=== PATIENT | male | born 1980 | race Caucasian/White ===

== ENCOUNTER 2019-02-17 00:09 | Emergency (ER) | payer SELFPAY ==
[~2019-02-17] VITALS: Ht 175 cm; Wt 90.0 kg
[2019-02-17] MEDS ORDERED: FAMOTIDINE 20MG/2ML IV (PEPCID) IVP ONE (00:45)
[2019-02-17] MEDS ORDERED: LORATADINE (CLARITIN) 10 MG TAB PO ONE (00:45)
[2019-02-17] MEDS ORDERED: methylPREDNISolone 125 MG (Solu-MEDROL) VIAL IVP ONE (00:45)
[2019-02-17] MEDS ORDERED: diphenhydrAMINE 50 MG/ML INJ (BENADRYL) IVP ONE (00:45)
--- NOTE | 2019-02-17 00:50 | ED General ---
General Chief Complaint: Allergic Reaction Stated Complaint: RASH ON ABD AND UNDER ARMS, SWOLLEN LIPS Nursing Triage Note: PT STATES HE WAS AT HIS FRIENDS HOUSE EAROUND ONE HOUR [employer] WHEN HE BECAME FLUSH AND BEGAN TO DEVELOPE HIVES AROUND HIS WAISTLINE AND TORSO. PT DENIES KNOWN ALLERGENS OR PREVIOUS EPISODES OF THIS NATURE. Nursing Sepsis Screen: No Definite Risk Source of Information: Patient, Other Exam Limitations: No Limitations History of Present Illness Date Seen by Provider: Feb 17, 2019 Time Seen by Provider: 00:20 Initial Comments Patient presents ER by private conveyance with chief complaint of a itchy rash started on his waistline moving of the trunk and armpits. He feels like his left side of his mouth swollen face is swelling. Anaphylaxis. Is not exposed to. No new soaps or detergents. 2 weeks ago he moved to the [facility] from [place]. No significant medical problems or history. He took 2 tablets of Benadryl 30 minutes prior to arrival. Allergies and Home Medications Allergies Coded Allergies: No Known Drug Allergies (Unverified , 02/17/19) Home Medications Epinephrine 0.3 Mg/0.3 Ml Auto.injct, 0.3 MG IJ Q15M PRN for anaphylaxis Prescribed by: GOPAL GUZMAN on 02/17/1951 Prednisone 20 Mg Tab, 20 MG PO BID Prescribed by: GOPAL GUZMAN on 02/17/1951 Patient Home Medication List Home Medication List Reviewed: Yes Review of Systems Review of Systems Constitutional: No chills, No fever EENTM: No ear discharge, No ear pain Respiratory: No cough, No short of breath, No stridor, No wheezing Cardiovascular: No chest pain, No edema Gastrointestinal: No abdominal pain, No nausea Genitourinary: No dysuria, No frequency Past Fxfypdk-Euqhef-Ryhmvi Hx Patient Social History Alcohol Use: Occasionally Uses Alcohol Beverage of Choice: Beer Recreational Drug Use: Yes Smoking Status: Current Everyday Smoker Type Used: Cigarettes Recent Foreign Travel: No Contact w/Someone Who Travel: No Recent Infectious Disease Expo: No Recent Hopitalizations: No Immunizations Up To Date Tetanus Booster (TDap): Less than 5yrs PED Vaccines UTD: No Seasonal Allergies Seasonal Allergies: No Past Medical History Surgeries: Yes Orthopedic Respiratory: No Cardiac: No Neurological: No Genitourinary: No Gastrointestinal: No Musculoskeletal: No Endocrine: No HEENT: No Cancer: No Psychosocial: No Integumentary: No Blood Disorders: No Adverse Reaction/Blood Tranf: No Physical Exam Vital Signs Vital Signs - First Documented 02/17/19 00:18 Temp 36.4 Pulse 77 Resp 20 B/P (MAP) 117/80 (92) Pulse Ox 96 O2 Delivery Room Air Capillary Refill : Less Than 3 Seconds Height, Weight, BMI Height: '" Weight: lbs. oz. kg; 29.00 BMI Method: General Appearance: No Apparent Distress, WD/WN Eyes: Bilateral Eye Normal Inspection, Bilateral Eye PERRL, Bilateral Eye EOMI HEENT: PERRL/EOMI, Normal ENT Inspection, Pharynx Normal, Moist Mucous Membranes, Other Neck: Full Range of Motion, Normal Inspection Respiratory: Lungs Clear, Normal Breath Sounds, No Accessory Muscle Use, No Respiratory Distress Cardiovascular: Regular Rate, Rhythm, No Edema Neurologic/Psychiatric: Alert, Oriented x3, No Motor/Sensory Deficits (mildly drowsy) Skin: Warm/Dry, Rash (confluence of patches of erythematous, flat, pruritic wheals and hives) Progress/Results/Core Measures Suspected Sepsis Recent Fever Within 48 Hours: No Infection Criteria Present: None New/Unexplained Altered Menta: No Sepsis Screen: No Definite Risk SIRS Temperature: Pulse: 77 Respiratory Rate: 20 Blood Pressure 117 /80 Mean: 92 Results/Orders My Orders Orders - GOPAL GUZMAN Loratadine Tablet (Claritin Tablet) (02/17/19 00:45) Famotidine Injection (Pepcid Injection) (02/17/19 00:45) Diphenhydramine Injection (Benadryl Inje (02/17/19 00:45) Methylprednisolone Sod Succ (Solu-Medrol (02/17/19 00:45) Ed Iv/Invasive Line Start (02/17/19 00:45) Medications Given in ED Current Medications Medications Dose Ordered Sig/Jacqueline Route Start Time Stop Time Status Last Admin Dose Admin Diphenhydramine HCl 25 mg ONCE ONCE IVP 02/17/19 00:45 02/17/19 00:46 DC 02/17/19 00:52 25 MG Famotidine 20 mg ONCE ONCE IVP 02/17/19 00:45 02/17/19 00:46 DC 02/17/19 00:52 20 MG Methylprednisolone Sodium Succinate 125 mg ONCE ONCE IVP 02/17/19 00:45 02/17/19 00:46 DC 02/17/19 00:52 125 MG Vital Signs/I&O 02/17/19 00:18 Temp 36.4 Pulse 77 Resp 20 B/P (MAP) 117/80 (92) Pulse Ox 96 O2 Delivery Room Air Capillary Refill : Less Than 3 Seconds Blood Pressure Mean: 92 Progress Note #1: Time: 00:48 Progress Note Antihistamines and Solu-Medrol. We will monitor him for about an hour. Presently his blood pressure is normal and he is not tachycardic or having anaphylaxis. Progress Note #2: Time: 01:30 Progress Note Patient's rash is gone he has no itching no stridor no difficulty breathing and he is ready to go home. Departure Impression Primary Impression: Urticaria of unknown origin Disposition: HOME, SELF-CARE Condition: Improved Departure-Patient Inst. Decision time for Depature: 01:30 Referrals: NO,LOCAL PHYSICIAN (PCP/Family) Primary Care Physician Patient Instructions: Linh (KRISTA) Add. Discharge Instructions: Until you're itching has gone away start taking the loratadine one tablet daily. Benadryl 1-2 tablets every 6 hours as needed for breakthrough itching. Pepcid one tablet twice a day until the itching is gone. Prednisone one tablet twice a day for the next 5 days. Return to the ER if you begin to experience shortness of breath or other worsening symptoms such as difficulty swallowing your secretions. Use the epinephrine injector if you have difficulty breathing or swallowing secretions once every [address] to the ER. All discharge instructions reviewed with patient and/or family. Voiced understanding. Scripts Epinephrine (Epipen 2-Ra) 0.3 Mg/0.3 Ml Auto.injct 0.3 MG IJ Q15M PRN for anaphylaxis, #1 EA 0 Refills Prov: GOPAL GUZMAN 02/17/19 Prednisone (Prednisone) 20 Mg Tab 20 MG PO BID for 5 Days, #10 TAB 0 Refills Prov: GOPAL GUZMAN 02/17/19 Work/School Note: Work Release Form Date Seen in the Emergency Department: Feb 17, 2019 Return to Work: Feb 18, 2019 Restrictions: No Restrictions GOPAL GUZMAN Feb 17, 2019 00:50
[2019-02-17] MEDS ORDERED: PRD20T PO (00:52)
[2019-02-17] MEDS ORDERED: EPIN0.3P3 IJ (00:52)
[2019-02-17 01:41] VITALS: BP 111/80
== END 2019-02-17 01:41 | disposition home or self-care (01) ==
LOC: ER 00:12
DX: L50.9 Urticaria, unspecified (principal); F17.210 Nicotine dependence, cigarettes, uncomplicated
CPT/HCPCS: 96374; 96375

== ENCOUNTER 2021-01-08 15:25 | Emergency (ER) | payer SELFPAY ==
[~2021-01-08] VITALS: Ht 175 cm; Wt 90.7 kg
[~2021-01-08 15:25] MED LIST: EPIN0.3P3 IJ; PRD20T PO
[2021-01-08 15:34] VITALS: BP 113/74
[2021-01-08] MEDS ORDERED: AMOX500C2 PO (15:49)
[2021-01-08] MEDS ORDERED: ACHD5005 PO (15:49)
[2021-01-08] MEDS ORDERED: NAPR-1071 PO (15:49)
--- NOTE | 2021-01-08 15:50 | ED EENT ---
History of Present Illness General Chief Complaint: Dental Problems/Pain Stated Complaint: DENTAL PAIN/SWELLING Source: patient Exam Limitations: no limitations History of Present Illness Date Seen by Provider: Jan 08, 2021 Time Seen by Provider: 15:45 Initial Comments To ER with right upper dental pain for about 3 days. Does not have a dentist. Timing/Duration: abrupt Severity: moderate Location: dental Prearrival Treatment: no prearrival treatment Associated Symptoms: denies symptoms Allergies and Home Medications Allergies Coded Allergies: No Known Drug Allergies (Unverified , 02/17/19) Home Medications Epinephrine 0.3 Mg/0.3 Ml Auto.injct, 0.3 MG IJ Q15M PRN for anaphylaxis Prescribed by: GOPAL GUZMAN on 02/17/1951 Prednisone 20 Mg Tab, 20 MG PO BID Prescribed by: GOPAL GUZMAN on 02/17/1951 Patient Home Medication List Home Medication List Reviewed: Yes Review of Systems Review of Systems Constitutional: see HPI Eyes: No Symptoms Reported Ears: No Symptoms Reported Nose: no symptoms reported Mouth: see HPI, pain Throat: no symptoms reported Respiratory: no symptoms reported Cardiovascular: no symptoms reported Musculoskeletal: no symptoms reported Skin: no symptoms reported Neurological: No Symptoms Reported Hematologic/Lymphatic: No Symptoms Reported Past Rynhrvu-Yowugr-Luscfv Hx Immunizations Up To Date Tetanus Booster (TDap): Less than 5yrs PED Vaccines UTD: No Seasonal Allergies Seasonal Allergies: No Past Medical History Surgeries: Yes Orthopedic Respiratory: No Cardiac: No Neurological: No Genitourinary: No Gastrointestinal: No Musculoskeletal: No Endocrine: No HEENT: No Cancer: No Psychosocial: No Integumentary: No Blood Disorders: No Adverse Reaction/Blood Tranf: No Physical Exam Height, Weight, BMI Height: '" Weight: lbs. oz. kg; 29.00 BMI Method: General Appearance: WD/WN, no apparent distress Eyes: bilateral eye normal inspection, bilateral eye PERRL, bilateral eye EOMI Ears: bilateral ear auricle normal, bilateral ear canal normal, bilateral ear TM normal Mouth/Throat: dental tenderness, other (There are several impacted teeth (see diagram) right upper. He has a carious and fractured though there is no fluctuance or drainable abscess.) Respiratory: no respiratory distress, no accessory muscle use Gastrointestinal: non tender, soft Neurologic/Psychiatric: alert, normal mood/affect, oriented x 3 Skin: normal color, warm/dry Departure Impression Primary Impression: Dental caries Disposition: 01 HOME, SELF-CARE Condition: Stable Departure-Patient Inst. Decision time for Depature: 15:47 Referrals: NO,LOCAL PHYSICIAN (PCP/Family) Primary Care Physician Patient Instructions: Dental Pain (DC) Add. Discharge Instructions: 1. Call [facility] dental clinic on Sunday for an appointment to be seen . Alternatively you can google other dentists in [place] and see whomever you would like. All discharge instructions reviewed with patient and/or family. Voiced understanding. Scripts Naproxen (Naprosyn) 500 Mg Tablet 500 MG PO BID PRN for PAIN-MODERATE (5-7), #30 TAB 0 Refills Prov: DANNI TIWARI APRN 01/08/21 Hydrocodone/Acetaminophen (Hydrocodone-Acetamin 5-325 mg) 1 Each Tablet 1 TAB PO Q4H PRN for PAIN-MODERATE (5-7), #5 TAB Prov: DANNI TIWARI APRN 01/08/21 Amoxicillin (Amoxicillin) 500 Mg Capsule 500 MG PO TID, #21 CAP 0 Refills Prov: DANNI TIWARI APRN 01/08/21 Images Mouth/Nose 1 - Caries, Fracture Tooth, Tenderness DANNI TIWARI APRN Jan 08, 2021 15:50
== END 2021-01-08 16:01 | disposition home or self-care (01) ==
LOC: EDUNIT# 15:25 → ER 15:28
DX: K02.9 Dental caries, unspecified (principal); Z79.52 Long term (current) use of systemic steroids
CPT/HCPCS: 99282